=== PATIENT | female | born 1985 | race Caucasian/White ===

== ENCOUNTER 2025-06-14 08:19 | Emergency (ER) | payer OTHER, SELFPAY ==
[2025-06-14 08:20] VITALS: BMI 28.7
[2025-06-14 08:26] VITALS: BP 146/85; PULSE 79; RESP 18; TEMP 37.1; O2SAT 98
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
[2025-06-14] MEDS: KETOROLAC INJ 30 MG/ML VIAL IM (08:38)
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
== END 2025-06-14 10:18 | disposition home or self-care (01) ==
PROVIDERS: Emergency Provider Emergency Medicine; PCP Family Medicine
DX: S20.212A Contusion of left front wall of thorax, initial encounter (principal); Y04.0XXA Assault by unarmed brawl or fight, initial encounter
CPT/HCPCS: 71101; 96372; 99283; J1885